=== PATIENT | female | born 2005 | race African-American/Black ===

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

== ENCOUNTER 2025-04-26 18:04 | Emergency (ER) | payer MEDICAID ==
[~2025-04-26] VITALS: Ht 165.1 cm; Wt 53.0 kg
[~2025-04-26 18:04] MED LIST changes: +CEPH500T MT; +DOCU-422 PO; +DOXY1TAB6 PO; +TOPUD PO
[2025-04-26 18:09] VITALS: O2SAT 100
[2025-04-26] MEDS ORDERED: KETOROLAC 30MG/ML VIAL IM ONE (21:00)
[2025-04-26] MEDS ORDERED: CYCLOBENZAPRINE 10MG TABLET PO ONE (21:00)
[2025-04-26] MEDS: ACETAMINOPHEN WITH CODEINE 300/30MG TABLET PO ONE (21:21)
[2025-04-26] MEDS ORDERED: IBUP-1455 MT (23:10)
[2025-04-26] MEDS ORDERED: CYCL10TA21 MT (23:10)
[2025-04-26 23:35] VITALS: BP 124/91; PULSE 67; RESP 18; TEMP 36.7; O2SAT 99
== END 2025-04-26 23:40 | disposition home or self-care (01) ==
LOC: ER 18:04
DX: S20.219A Contusion of unspecified front wall of thorax, initial encounter (principal); M54.2 Cervicalgia; Z79.899 Other long term (current) drug therapy; W22.09XA Striking against other stationary object, initial encounter; Y93.89 Activity, other specified; Y92.89 Other specified places as the place of occurrence of the external cause; Y99.8 Other external cause status
CPT/HCPCS: 71045; 81025; 93005; 99284

== ENCOUNTER 2025-05-09 17:33 | Emergency (ER) | payer MEDICAID ==
[~2025-05-09] VITALS: Ht 154.9 cm; Wt 47.0 kg
[~2025-05-09 17:33] MED LIST changes: +CYCL10TA21 MT; +IBUP-2029 MT
[2025-05-09 17:34] VITALS: BP 100/63; PULSE 68; RESP 18; TEMP 37; O2SAT 99
== END 2025-05-09 21:35 | disposition left against medical advice (07) ==
LOC: ER 17:33
DX: M54.2 Cervicalgia (principal); M54.9 Dorsalgia, unspecified; Z53.21 Procedure and treatment not carried out due to patient leaving prior to being seen by health care provider

== ENCOUNTER 2025-07-06 09:21 | Emergency (ER) | payer MEDICAID ==
[~2025-07-06] VITALS: Ht 162.6 cm; Wt 47.0 kg
[~2025-07-06 09:21] MED LIST changes: +IBUP-1455 MT; -IBUP-2029 MT
[2025-07-06 09:23] VITALS: O2SAT 99
[2025-07-06 09:59] LABS: BASOPHILS % 0.7 % (0.0-2.0); EOSINOPHILS % 0.1 % (0.0-5.0); HEMATOCRIT. 37.5 % (36.0-48.0); HEMOGLOBIN. 12.6 g/dL (12.0-16.0); LYMPHOCYTES % 20.9 % (20.0-50.0); MEAN PLATELET VOLUME 8.1 fl (7.4-10.4); MONOCYTES % 5.7 % (2.0-8.0); NEUTROPHILS % 72.6 % (40.0-76.0); PLATELET 231 x1000/uL (130-400); RED BLOOD CELL COUNT 3.96 mill/uL (4.2-5.4); RED CELL DISTRIBUTION WIDTH 14.1 % (11.6-14.6)
[2025-07-06 10:20] LABS: CREATININE 0.9 mg/dL (0.6-1.0); UREA NITROGEN BLOOD 6 mg/dL (9-23)
[2025-07-06 10:21] LABS: TROPONIN I HIGH SENSITIVITY < 4 ng/L (3.0-34)
[2025-07-06 12:36] VITALS: BP 122/83; PULSE 70; RESP 16; TEMP 36.8; O2SAT 99
[2025-07-06] MEDS ORDERED: ACETAMINOPHEN 325MG TABLET PO PRN ×2 (12:45)
[2025-07-06] MEDS ORDERED: GUAIFENESIN 200MG/10ML SUGAR FREE UDC PO PRN (12:45)
[2025-07-06] MEDS ORDERED: ONDANSETRON HCL 4MG/2ML INJ IV PRN (12:45)
[2025-07-06] MEDS ORDERED: IPRATROPIUM/ALBUTEROL 0.5-3(2.5)MG/3ML NEB HHN PRN (12:45)
[2025-07-06] MEDS ORDERED: DOCUSATE SODIUM 100MG CAPSULE PO PRN (12:45)
[2025-07-06 15:25] LABS: FOLIC ACID (FOLATE) SERUM > 20.00 ng/mL (>5.38)
[2025-07-06 15:27] LABS: VITAMIN B12 SERUM 651 pg/mL (211-911)
== END 2025-07-06 15:45 | disposition left against medical advice (07) ==
LOC: ER 09:26 → EDBEDREQTM 11:58 → EDBEDREQ 11:58 → ER 15:45 → CMPBEDREQ 16:42
DX: M62.81 Muscle weakness (generalized) (principal); G35.D Multiple sclerosis, unspecified; R07.9 Chest pain, unspecified; Z79.899 Other long term (current) drug therapy
CPT/HCPCS: 36415; 71045; 80048; 82607; 82746; 84484; 85025; 86038; 93005; 94640; 99285